=== PATIENT | female | born 1960 | race Caucasian/White ===

== ENCOUNTER 2025-01-28 09:05 | Emergency (ER) | payer BC, SELFPAY ==
[2025-01-28 09:25] VITALS: BP 137/76
--- NOTE | 2025-01-28 11:34 | ED.GENMED ---
History of Present Illness
General
Chief Complaint: Headache
Time Seen by Provider: 01/28/25 11:22
History of Present Illness
History of Present Illness:
Patient is a 64-year-old woman with history of migraines with visual aura presenting to the emergency department with a headache. Patient states that she woke up last night with a headache that she described as her brain rocking [id number].
When she opened her eyes she felt extremely dizzy. She felt as if her eyes were crossing. She did not have any double vision. No numbness tingling. No weakness. She was able to speak during this event. She states that it came and go throughout
the night. Ultimately this morning she had an episode of emesis and since then symptoms have resolved. She does have a history of migraines with visual aura. Last migraine was a few years ago though. She currently does have residual headache to
the right posterior head. Otherwise patient denies any complaints. No traumatic events. No blood thinners.
Phy Exam
Physical Exam
Physical Exam:
GENERAL: in no acute distress
HEENT: normocephalic, extraocular movements intact, moist oral mucosa
NECK: normal inspection
RESPIRATORY: no respiratory distress, clear to auscultation bilaterally
CARDIOVASCULAR: regular rate and rhythm
ABDOMEN/: soft, non-distended, non-tender to palpation, no rebound or guarding
EXTREMITIES: non-tender, no edema/swelling
NEUROLOGIC: alert and oriented x 3, cranial nerves II-XII intact, right upper extremity strength 5/5, left upper extremity strength 5/5, right lower extremity strength 5/5, left lower extremity strength 5/5, normal sensation to light touch, normal
[id number] and [id number], gait not tested formally
SKIN: warm
Course
Orders/Labs/Results
Orders:
Orders
01/28/25 11:[address] [CT Head W/o Iv Contrast] Urgent
Comment:
Reason For Exam: head ache and dizziness
01/28/25 11:29
Diphenhydramine [Benadryl] 25 mg IV NOW STA
Metoclopramide [Reglan] 10 mg IV NOW STA
01/28/25 11:33
Complete Blood Count/With Diff Urgent
01/28/25 12:17
Basic Metabolic Panel Routine
Abnormal Lab Results
01/28/25
11:33
MCHC 32.8 L g/dL
(33.0-37.0)
MPV 11.7 H fL
(7.4-10.4)
01/28/25 11:33
01/28/25 12:17
Vital Signs
Initial and Last Documented VS:
Initial Vital Signs
Temp Pulse Resp BP Pulse Ox
98.2 F 67 16 137/76 100
01/28/25 09:25 01/28/25 09:25 01/28/25 09:25 01/28/25 09:25 01/28/25 09:25
Last Documented Vital Signs
Temp Pulse Resp BP Pulse Ox
98.2 F 63 16 115/61 98
01/28/25 09:25 01/28/25 12:21 01/28/25 12:21 01/28/25 12:21 01/28/25 12:21
MDM/Problems Addressed
Differential Diagnosis Includes:
Patient is a 64-year-old woman history of migraines with aura presenting to the emergency with a headache and dizziness that have since resolved. Patient does have a slight headache currently that she describes as a tight band. Vitals are
otherwise reassuring. Exam shows no neurological symptoms. Likely complex migraine versus migraine with aura. Considered TIA though unlikely. Could be peripheral vertigo. After shared decision making we will obtain basic blood work and CT scan
of the head. Will give migraine cocktail.
*Pulse Oximetry
SaO2: 100
Oxygen Mode of Delivery: Room air
Patient hypoxic: no
*Critical Care Note
Total Time (30-74mins, 75-104mins- exclusive of procedures): Not Applicable
Update Note
Update Note:
On reevaluation patient's headache is much improved. Blood work reassuring. CT scan negative. Will discharge patient at this time. Will give her neurology follow-up given her history of migraines and if these persist.
ED Attending Note
-
Portions of this chart may have been created with voice recognition software.� Occasional wrong word or��sound alike� substitutions may have occurred due to the inherent limitations of voice recognition software.
Discharge Plan
Departure
Patient Disposition: Home (Routine Discharge)
Date of Disposition: 01/28/25
Time of Disposition: 12:59
Patient with high blood pressure during this ER visit?: No
Discharge Problem:
Migraine headache with aura
Instructions: Migraines (DC)
Referrals:
Drea Mcelroy MD [Non-Admitting Privileges, Neurology]
Jose Sanchez DO [Family Provider, Family Practice]
Activity Restrictions/Additional Instructions:
Thank You for choosing [facility].
It was a pleasure meeting you and taking part in your care.
You were seen in the Emergency Department today for headache. While you were here we performed blood work, which was reassuring.
We would like for you to follow up with your primary care physician for further evaluation. If you experience fever, worsening of your symptoms, or develop any other new or concerning symptoms, please return to the Emergency Department immediately.
Please see the attached sheet for additional information.
Interventions
Interventions:
*Risk Screen - Suicide Last Done: 01/28/25 09:25
*General Assessment Last Done: 01/28/25 09:25
*Neglect/Abuse Screening Last Done: 01/28/25 11:56
*ED COVID-19 Vaccine History Last Done: 01/28/25 11:56
*ED Influenza Vaccine History Last Done: 01/28/25 11:56
[facility] Fall Risk Assessment Tool Last Done: 01/28/25 11:58
ED- Neurological Assessment Last Done: 01/28/25 11:57
Discharge Date and Time
Print Language: MACEDONIAN
[2025-01-28] MEDS: REGLAN 10 MG IV (11:39)
[2025-01-28] MEDS: BENADRYL 25 MG IV (11:39)
[2025-01-28 11:48] LABS: Hematocrit 38.7 % (37.0-47.0); Hemoglobin 12.7 g/dL (12.0-16.0); Mean Corp Hgb Conc. 32.8 g/dL (33.0-37.0); Mean Corpuscular Volume 84.7 fL (81.0-99.0); Nucleated Red Blood Cells % 0 %; Platelet Count 230 10^3/uL (130-400); Red Cell Dist. Width 13.7 % (11.5-14.5)
[2025-01-28 12:21] VITALS: BP 115/61
[2025-01-28 12:42] LABS: Blood Urea Nitrogen 11 mg/dl (7-17); Calcium 9.1 mg/dl (8.4-10.2); Carbon Dioxide 28 mmol/L (22-30); Chloride 105 mmol/L (98-107); Glucose 93 mg/dl (70-99); Potassium 4.0 mmol/L (3.5-5.1); Sodium 137 mmol/L (135-145); eGFR > 60.00
[2025-01-28 13:15] VITALS: BP 123/74
== END 2025-01-28 13:16 | disposition home or self-care (01) ==
LOC: EMR 09:05
PROVIDERS: EMERGENCY PHYSICIAN Student in an Organized Health Care Education/Training Program; FAMILY PHYSICIAN Family Medicine
DX: G43.109 Migraine with aura, not intractable, without status migrainosus (principal)
CPT/HCPCS: 99284; 96374; 96375; 70450; 80048; 85025